=== PATIENT | female | born 1955 | race Two or more races ===

== ENCOUNTER 2020-08-20 14:52 | Inpatient (IN) | payer MEDICAID ==
[~2020-08-20] VITALS: Ht 162.6 cm; Wt 68.0 kg
--- NOTE | 2020-08-20 15:00 | NUR ---
jimmy polanco [facility].sent by pmd for abnormal labs, vent dependent patient. Patient a/ox0, opens eyes, vent dependent, needs attended.
--- NOTE | 2020-08-20 15:30 | NUR ---
IV line established, blood drawn and sent to lab.
[2020-08-20] MEDS ORDERED: ASCO-352 GT (15:34)
[2020-08-20] MEDS ORDERED: DOCU50LI GT (15:34)
[2020-08-20] MEDS ORDERED: FERR300L GT (15:34)
[2020-08-20] MEDS ORDERED: CHLO473M5 MM (15:34)
[2020-08-20] MEDS ORDERED: POLY17PO4 GT (15:34)
[2020-08-20] MEDS ORDERED: ACET-868 GT (15:34)
[2020-08-20] MEDS ORDERED: MULT-447 GT (15:34)
[2020-08-20] MEDS ORDERED: APIX2.5T GT (15:34)
[2020-08-20] MEDS ORDERED: CHOL400T GT (15:34)
[2020-08-20] MEDS ORDERED: DARB40VI SQ (15:34)
[2020-08-20] MEDS ORDERED: CRAN3875 GT (15:34)
[2020-08-20] MEDS ORDERED: SACC250C GT (15:34)
[2020-08-20] MEDS ORDERED: BISA10SU11 RC (15:34)
[2020-08-20] MEDS ORDERED: INSU100V39 SQ (15:34)
[2020-08-20] MEDS ORDERED: FURO-145 GT (15:34)
[2020-08-20] MEDS ORDERED: METO25TA20 GT (15:34)
[2020-08-20] MEDS ORDERED: PANT40SU2 GT (15:34)
[2020-08-20] MEDS ORDERED: CHLO118L6 TP (15:34)
[2020-08-20] MEDS ORDERED: MAGN400O6 GT (15:34)
[2020-08-20] MEDS ORDERED: ACET-2605 GT (15:34)
[2020-08-20] MEDS ORDERED: LEVO50TA8 GT (15:34)
[2020-08-20] MEDS ORDERED: NUT.250L18 GT (15:34)
[2020-08-20] MEDS ORDERED: ASPI-1169 GT (15:34)
[2020-08-20] MEDS ORDERED: IPRA4AER IH ×2 (15:34)
[2020-08-20] MEDS ORDERED: HYDR-4075 GT (15:34)
[2020-08-20] MEDS ORDERED: ISOS10TA2 GT (15:34)
[2020-08-20] MEDS ORDERED: NA P133E RC (15:34)
[2020-08-20] MEDS ORDERED: ATOR40TA GT (15:34)
[2020-08-20] MEDS ORDERED: INSU100V7 SQ (15:34)
[2020-08-20] MEDS ORDERED: METF-440 GT (15:34)
[2020-08-20 15:40] LABS: BASOPHILS # (AUTO) 0.1 /CMM (0.0-0.2); BASOPHILS % (AUTO) 0.3 % (0.0-2.0); EOSINOPHILS % (AUTO) 0.8 % (0.0-6.0); HEMATOCRIT 25 % (33-45); HEMOGLOBIN 7.9 g/dL (11.5-14.8); LYMPHOCYTES # (AUTO) 3.3 /CMM (0.8-4.8); LYMPHOCYTES % (AUTO) 15.2 % (20.0-44.0); MEAN CORPUSCULAR HGB CONC 32 g/dl (31.0-36.0); MEAN CORPUSCULAR VOLUME 84 fL (82-100); MONOCYTES # (AUTO) 0.8 /CMM (0.1-1.30); MONOCYTES % (AUTO) 3.5 % (2.0-12.0); NEUTROPHILS # (AUTO) 17.1 /CMM (1.8-8.9); NEUTROPHILS % (AUTO) 80.2 % (43.0-81.0); PLATELET COUNT (AUTO) 603 /CMM (150-450); RED BLOOD CELL COUNT(AUTO) 2.96 MIL/uL (4.0-5.2); WHITE BLOOD COUNT (AUTO) 21.4 K/uL (4.3-11.0)
[2020-08-20 15:52] LABS: MAGNESIUM 2.8 mg/dL (1.8-2.4)
[2020-08-20 15:59] LABS: ALANINE AMINOTRANSFERASE 37 U/L (12-78); ALBUMIN 2.2 g/dL (3.4-5.0); ALKALINE PHOSPHATASE 163 U/L (46-116); ASPARTATE AMINOTRANSFERASE 32 U/L (15-37); BILIRUBIN,DIRECT 0.1 mg/dL (0.0-0.2); BILIRUBIN,TOTAL 0.2 mg/dL (0.2-1.0); CALCIUM, SERUM 9.7 mg/dL (8.5-10.1); CARBON DIOXIDE 31 mmol/L (21-32); CHLORIDE 99 mmol/L (98-107); CREATININE 1.2 mg/dL (0.6-1.3); GLUCOSE 171 mg/dL (74-106); POTASSIUM 4.8 mmol/L (3.5-5.1); SODIUM SERUM 136 mmol/L (136-145); TOTAL PROTEIN, SERUM 8.3 g/dL (6.4-8.2); UREA NITROGEN, BLOOD 41 mg/dL (7-18)
[2020-08-20 16:06] LABS: ABG BASE EXCESS 6.1 mmol/L; ABG OXYGEN SATURATION 99.3 % (92.0-98.5); ABG PCO2 41.7 mmHg (35.0-45.0); ABG PH 7.478 (7.350-7.450); ABG PO2 184.4 mmHg (75.0-100.0); COHb 0.3 % (0.5-1.5); MetHb 0.3 % (0.0-1.5); O2Hb 98.7 % (94.0-97.0); SITE, ABG Right Radial; VENT MODE, BG AC 14 450 30% +5
[2020-08-20] MEDS ORDERED: MEROPENEM 1,000 MG in IV NS 0.9% 100 ML IV ONE (16:30)
[2020-08-20] MEDS ORDERED: NS 0.9% IV ONE (16:30)
--- NOTE | 2020-08-20 16:58 | NUR ---
CALLED [facility], PAGED DR SCHULTE
[2020-08-20 17:07] LABS: BILIRUBIN,URINE Negative (NEGATIVE); COLOR,URINE YELLOW (YELLOW); LEUKOCYTE ESTERASE ,URINE Large (NEGATIVE); NITRITE, URINE Negative (NEGATIVE); PROTEIN,URINE 100 mg/dl (NEGATIVE); UGLUCOSE Negative (NEGATIVE); UROBILINOGEN,URINE 0.2 EU/dL (0.2)
[2020-08-20 17:08] LABS: PH,URINE >8.5 (5.0-8.0)
[2020-08-20 17:10] LABS: BACTERIA,URINE 3+ /HPF (None Seen); RBC,URINE NONE SEEN /HPF (0-2); SQUAMOUS EPITHELIAL CELL,UR Few /HPF (None Seen); WBC,URINE TOO NUMEROUS TO COUN /HPF (0-3)
[2020-08-20] MEDS ORDERED: ACETAMINOPHEN 325 MG TABLET PO PRN (17:30)
[2020-08-20] MEDS ORDERED: BISACODYL SUPP (10 MG) 10 MG/SUPP.RECT SUPP.RECT RC PRN (17:30)
[2020-08-20] MEDS ORDERED: GLUCERNA 1.2 1,000 ML BOTTLE NG PRN (17:30)
[2020-08-20] MEDS ORDERED: MAGNESIUM HYDROXIDE 30 ML UDC GT PRN (17:30)
[2020-08-20] MEDS ORDERED: Z GUARD REMEDY 2 OZ OINT TP PRN (17:30)
[2020-08-20] MEDS ORDERED: ENOXAPARIN SODIUM 40 MG/0.4 ML DISP.SYRIN SQ SCH (17:30)
[2020-08-20] MEDS ORDERED: HYDROCODONE/APAP 5/325MG TABLET GT PRN (17:30)
[2020-08-20] MEDS ORDERED: NA PHOS,M-B/NA PHOS,DI-BA 1 EA ENEMA RC PRN (17:30)
[2020-08-20] MEDS ORDERED: ONDANSETRON HCL/PF 4 MG/2 ML VIAL IVP PRN (17:30)
--- NOTE | 2020-08-20 19:26 | NUR ---
ASSUMED CARE. REPORT RECEIVED FROM AM SHIFT HUDSON ALEXANDER. PT AAOX1 NO ACUTE DISTRESS NOTED. PT TOLERATING CURRENT VENT SETTING AC-14, TV-450. FIO2-40%, PEEP-5, RESP EVEN AND UNLABORED. RHONCHI HEARD BILATERALLY ON AUSCULTATION. NO PAIN OR DISCOMFORT AT THIS TIME. PT REMAINS ON CARDIAC MONITORING SHOWS NSR-90'S, CONTINUOUS POX WITH 02 SAT 100% ON RA. WILL CONTINUE TO MONITOR PT CLOSELY. CALL LIGHT WITHIN REACH.
--- NOTE | 2020-08-20 20:25 | NUR ---
RT pt received on mechanical vent with current settings. trached, portex 8. vent plugged in to red outlet. ambu bag at [facility]. alarms on and audible. small, yellow secretions suctioned via trach. no resp distress, no sob at this time. will continue to monitor.
[2020-08-20] MEDS ORDERED: PANTOPRAZOLE 40 MG/PACK PACK ONE (20:37)
[2020-08-20] MEDS ORDERED: FERROUS SULFATE UDC 300 MG/5 ML UDC ONE (20:37)
[2020-08-20] MEDS ORDERED: METOPROLOL TARTRATE 50 MG TABLET ONE (20:38)
[2020-08-20] MEDS ORDERED: MEROPENEM 1 G in IV NS 0.9% 100 ML IV SCH (21:00)
[2020-08-20] MEDS: FERROUS SULFATE UDC 300 MG/5 ML UDC GT SCH (21:00)
[2020-08-20] MEDS: PANTOPRAZOLE 40 MG/PACK PACK GT SCH (21:05)
[2020-08-20] MEDS: ISOSORBIDE DINITRATE (10MG) 10 MG TABLET GT SCH (21:06)
[2020-08-20] MEDS: METOPROLOL TARTRATE 50 MG TABLET GT SCH (21:10)
[2020-08-20] MEDS: IV NS 0.9% 1,000 ML IV PRN (21:33)
--- NOTE | 2020-08-20 23:07 | NUR ---
TOTAL PT CARE DONE, BED LINEN CHANGED, REPOSITIONED PT FOR COMFORT, SUCTIONED PT.
--- NOTE | 2020-08-21 01:00 | NUR ---
PT RESTING QUIETLY, NO ACUTE DISTRESS NOTED, RESP EVEN AND UNLABORED. NO PAIN OR DISCOMFORT NOTED AT THIS TIME. CALL LIGHT WITHIN REACH. WILL CONTINUE TO MONITOR PT CLOSELY.
[2020-08-21 04:10] LABS: BASOPHILS % (AUTO) 0.2 % (0.0-2.0); EOSINOPHILS % (AUTO) 0.6 % (0.0-6.0); HEMATOCRIT 24 % (33-45); HEMOGLOBIN 7.4 g/dL (11.5-14.8); LYMPHOCYTES # (AUTO) 1.7 /CMM (0.8-4.8); LYMPHOCYTES % (AUTO) 8.7 % (20.0-44.0); MEAN CORPUSCULAR HGB CONC 32 g/dl (31.0-36.0); MEAN CORPUSCULAR VOLUME 84 fL (82-100); MONOCYTES # (AUTO) 0.7 /CMM (0.1-1.30); MONOCYTES % (AUTO) 3.6 % (2.0-12.0); NEUTROPHILS # (AUTO) 16.9 /CMM (1.8-8.9); NEUTROPHILS % (AUTO) 86.9 % (43.0-81.0); PLATELET COUNT (AUTO) 535 /CMM (150-450); RED BLOOD CELL COUNT(AUTO) 2.82 MIL/uL (4.0-5.2); WHITE BLOOD COUNT (AUTO) 19.5 K/uL (4.3-11.0)
[2020-08-21 04:21] LABS: CALCIUM, SERUM 9.4 mg/dL (8.5-10.1); CREATININE 0.8 mg/dL (0.6-1.3); MAGNESIUM 2.5 mg/dL (1.8-2.4); PHOSPHORUS 3.6 mg/dL (2.5-4.9); POTASSIUM 4.3 mmol/L (3.5-5.1)
--- NOTE | 2020-08-21 04:32 | NUR ---
REPOSITIONED PT FOR COMFORT. CALL LIGHT WITHIN REACH. WILL CONTINUE TO MONITOR PT CLOSELY.
[2020-08-21 04:38] LABS: THYROID STIMULATING HORMONE 5.184 uIU/mL (0.358-3.74)
[2020-08-21] MEDS: ISOSORBIDE DINITRATE (10MG) 10 MG TABLET GT SCH ×3 (05:20→21:39)
[2020-08-21] MEDS: GLUCERNA 1.2 1,000 ML BOTTLE GT PRN (05:21)
[2020-08-21] MEDS: MEROPENEM 1 G in IV NS 0.9% 100 ML IV SCH ×2 (05:56→18:04)
--- NOTE | 2020-08-21 07:33 | NUR ---
REPORT GIVEN TO AM SHIFT HUDSON ALEXANDER.
[2020-08-21] MEDS ORDERED: DOCUSATE SODIUM 100 MG CAPSULE PO ONE (08:59)
[2020-08-21] MEDS ORDERED: APIXABAN 2.5 MG TABLET ONE ×2 (08:59→17:23)
[2020-08-21] MEDS ORDERED: METFORMIN 500 MG TABLET ONE ×2 (08:59→17:23)
[2020-08-21] MEDS ORDERED: METOPROLOL TARTRATE 50 MG TABLET ONE ×2 (09:00→21:21)
[2020-08-21] MEDS ORDERED: ASPIRIN 81 MG TAB.CHEW ONE (09:03)
[2020-08-21] MEDS: ASPIRIN 81 MG TAB.CHEW GT SCH (09:06)
[2020-08-21] MEDS ORDERED: DOCUSATE SODIUM LIQ 100 MG/10 ML UDC ONE ×2 (09:12→17:23)
[2020-08-21] MEDS: METFORMIN 500 MG TABLET GT SCH ×2 (09:13→17:27)
[2020-08-21] MEDS: APIXABAN 2.5 MG TABLET GT SCH ×2 (09:14→17:26)
[2020-08-21] MEDS: DOCUSATE SODIUM LIQ 100 MG/10 ML UDC GT SCH ×2 (09:14→17:26)
[2020-08-21] MEDS: METOPROLOL TARTRATE 50 MG TABLET GT SCH ×2 (09:15→21:39)
[2020-08-21] MEDS: POLYETHYLENE GLYCOL 3350 17 GM POWD.PACK GT SCH (09:19)
[2020-08-21] MEDS ORDERED: ATORVASTATIN 40 MG TABLET ONE (09:20)
[2020-08-21] MEDS ORDERED: LEVOTHYROXINE SODIUM 50 MCG TABLET ONE (09:21)
[2020-08-21] MEDS: ATORVASTATIN 40 MG TABLET GT SCH (09:21)
[2020-08-21] MEDS ORDERED: CHOLECALCIFEROL 1,000 UNIT TABLET (VIT D3) ONE (09:21)
[2020-08-21] MEDS ORDERED: ASCORBIC ACID 500 MG TABLET ONE ×2 (09:21→17:24)
[2020-08-21] MEDS ORDERED: PANTOPRAZOLE 40 MG/PACK PACK ONE ×2 (09:21→21:21)
[2020-08-21] MEDS: PANTOPRAZOLE 40 MG/PACK PACK GT SCH ×2 (09:22→21:39)
[2020-08-21] MEDS: LEVOTHYROXINE SODIUM 25 MCG TABLET GT SCH (09:22)
[2020-08-21] MEDS: ASCORBIC ACID 500 MG TABLET GT SCH ×2 (09:22→17:27)
[2020-08-21] MEDS ORDERED: FERROUS SULFATE UDC 300 MG/5 ML UDC ONE ×4 (09:23→21:38)
[2020-08-21] MEDS: FERROUS SULFATE UDC 300 MG/5 ML UDC GT SCH ×4 (09:52→21:39)
[2020-08-21] MEDS: CHOLECALCIFEROL (VITAMIN D 3) 400 UNIT TABLET GT SCH (10:00)
[2020-08-21] MEDS: INSULIN GLARGINE, 100 UNIT/ML CARTRIDGE SQ SCH ×2 (10:06→18:03)
--- NOTE | 2020-08-21 15:19 | NUR ---
Vero constantino in EDM - 08/21/20 at 1652 by SCOOBY PATIENT CAME BACK FROM US GUIDED BIOPSY. TOLERATED PROCEDURE WELL. BACK IN BED. WILL CONTINUE TO MONITOR VS.
[2020-08-21] MEDS ORDERED: CHLORHEXIDINE GLUCONATE 4% 118 ML BOTTLE TP SCH (17:30)
--- NOTE | 2020-08-21 19:36 | NUR ---
RT pt received on mechanical vent with current vent settings. trached, portex 8. vent plugged in to red outlet. trach patent and secure. no resp distress, no sob. ambu bag at [facility]. alarms on and audible. will continue to monitor.
--- NOTE | 2020-08-21 19:45 | NUR ---
REC'D PT IN BED ,PT AAOX0, VENT/TRACHE DEPENDENT, NOT IN ANY DISTRESS, NO SOB, PT ADMITTED FOR UTI/SEPSIS, WITH ONOGING GT FEEDING, NO EPSIODES OF ASPIRATION NOTED, HOB ELEVATED, PT WITH IVF FOR MAINTENANCE, PT VSS, NO ACUTE CHANGES, WCTM
[2020-08-22 04:34] LABS: BASOPHILS # (AUTO) 0.2 /CMM (0.0-0.2); BASOPHILS % (AUTO) 1.1 % (0.0-2.0); EOSINOPHILS % (AUTO) 1.2 % (0.0-6.0); HEMATOCRIT 22 % (33-45); HEMOGLOBIN 7.1 g/dL (11.5-14.8); LYMPHOCYTES # (AUTO) 2.2 /CMM (0.8-4.8); LYMPHOCYTES % (AUTO) 15.3 % (20.0-44.0); MEAN CORPUSCULAR HGB CONC 32 g/dl (31.0-36.0); MEAN CORPUSCULAR VOLUME 83 fL (82-100); MONOCYTES # (AUTO) 0.6 /CMM (0.1-1.30); MONOCYTES % (AUTO) 4.5 % (2.0-12.0); NEUTROPHILS # (AUTO) 11.2 /CMM (1.8-8.9); NEUTROPHILS % (AUTO) 77.9 % (43.0-81.0); PLATELET COUNT (AUTO) 482 /CMM (150-450); RED BLOOD CELL COUNT(AUTO) 2.65 MIL/uL (4.0-5.2); WHITE BLOOD COUNT (AUTO) 14.3 K/uL (4.3-11.0)
[2020-08-22 04:51] LABS: ALBUMIN 1.9 g/dL (3.4-5.0); BILIRUBIN,TOTAL 0.2 mg/dL (0.2-1.0); CALCIUM, SERUM 8.8 mg/dL (8.5-10.1); CREATININE 0.8 mg/dL (0.6-1.3); MAGNESIUM 2.1 mg/dL (1.8-2.4); PHOSPHORUS 1.9 mg/dL (2.5-4.9); TOTAL PROTEIN, SERUM 7.3 g/dL (6.4-8.2)
[2020-08-22] MEDS: ISOSORBIDE DINITRATE (10MG) 10 MG TABLET GT SCH ×2 (05:00→13:13)
[2020-08-22] MEDS: MEROPENEM 1 G in IV NS 0.9% 100 ML IV SCH ×2 (06:52→17:31)
[2020-08-22] MEDS: IV NS 0.9% 1,000 ML IV PRN (07:17)
--- NOTE | 2020-08-22 08:00 | NUR ---
PATIENT A/OXO, OPENS EYES, NO DISTRESS NOTED. ON MECHANICAL VENT AND TOLERATING WELL. KEPT COMFORTABLE. IV FLUID INFUSING, GT FEEDING DOSE COMPLETED WILL RESUME IN 2 HOURS. TURNED AND REPOSITIONED. OFFLOADED HEELS.
[2020-08-22] MEDS ORDERED: FERROUS SULFATE UDC 300 MG/5 ML UDC ONE ×3 (08:36→17:18)
[2020-08-22] MEDS ORDERED: DOCUSATE SODIUM LIQ 100 MG/10 ML UDC ONE ×2 (08:36→17:18)
[2020-08-22] MEDS ORDERED: METFORMIN 500 MG TABLET ONE ×2 (08:37→17:18)
[2020-08-22] MEDS ORDERED: ATORVASTATIN 40 MG TABLET ONE (08:37)
[2020-08-22] MEDS ORDERED: ASCORBIC ACID 500 MG TABLET ONE ×2 (08:37→17:18)
[2020-08-22] MEDS ORDERED: APIXABAN 2.5 MG TABLET ONE (08:37)
[2020-08-22] MEDS ORDERED: ASPIRIN 81 MG TAB.CHEW ONE (08:38)
[2020-08-22] MEDS ORDERED: PANTOPRAZOLE 40 MG/PACK PACK ONE (08:38)
[2020-08-22] MEDS ORDERED: METOPROLOL TARTRATE 50 MG TABLET ONE (08:38)
[2020-08-22] MEDS: APIXABAN 2.5 MG TABLET GT SCH (08:40)
[2020-08-22] MEDS: DOCUSATE SODIUM LIQ 100 MG/10 ML UDC GT SCH ×2 (08:40→17:22)
[2020-08-22] MEDS: FERROUS SULFATE UDC 300 MG/5 ML UDC GT SCH ×3 (08:40→17:22)
[2020-08-22] MEDS: ASPIRIN 81 MG TAB.CHEW GT SCH (08:40)
[2020-08-22] MEDS: ATORVASTATIN 40 MG TABLET GT SCH (08:41)
[2020-08-22] MEDS: METFORMIN 500 MG TABLET GT SCH ×2 (08:41→17:22)
[2020-08-22] MEDS: METOPROLOL TARTRATE 50 MG TABLET GT SCH (08:41)
[2020-08-22] MEDS: LEVOTHYROXINE SODIUM 25 MCG TABLET GT SCH (08:42)
[2020-08-22] MEDS: ASCORBIC ACID 500 MG TABLET GT SCH ×2 (08:42→17:22)
[2020-08-22] MEDS: POLYETHYLENE GLYCOL 3350 17 GM POWD.PACK GT SCH (08:42)
[2020-08-22] MEDS: CHOLECALCIFEROL (VITAMIN D 3) 400 UNIT TABLET GT SCH (08:42)
[2020-08-22] MEDS: PANTOPRAZOLE 40 MG/PACK PACK GT SCH (08:42)
[2020-08-22] MEDS: INSULIN GLARGINE, 100 UNIT/ML CARTRIDGE SQ SCH ×2 (08:44→17:31)
[2020-08-22] MEDS: GLUCERNA 1.2 1,000 ML BOTTLE GT PRN (09:00)
[2020-08-22] MEDS ORDERED: NEUTRA PHOS 1 POWD.PACKET NG ONE (10:00)
--- NOTE | 2020-08-22 14:23 | NUR ---
WOUND CARE DONE ON SINGH. HEELS AND SACRAL AREA. NO DISTRESS NOTED.
--- NOTE | 2020-08-22 14:41 | NUR ---
CALL FROM FRANK,CASE MANAGEMENT,[employer] TIME IS [id number]
--- NOTE | 2020-08-22 20:12 | NUR ---
REPORT CALLED TO [facility] / [facility] A[facility] COUNSELORHUDSON PACHECO.
--- NOTE | 2020-08-22 20:17 | NUR ---
TRANSPORT AT [facility] REPORT GIVEN TO EMT AND RT TRANSPORT. LEFT SL IN PLACE PER [facility] REQUEST DUE TO ANTIBIOTIC INFUSION PER MD ORDER.
[2020-08-22 20:27] VITALS: BP 145/69
== END 2020-08-22 20:17 | DRG 720 ==
LOC: ER 15:01 → TRANSITION 17:46
PROC: 5A1945Z Respiratory Ventilation, 24-96 Consecutive Hours (ICD-10-PCS; principal; 2020-08-20)
DX: A41.9 Sepsis, unspecified organism (principal); E03.9 Hypothyroidism, unspecified; E11.9 Type 2 diabetes mellitus without complications; E44.0 Moderate protein-calorie malnutrition; I50.9 Heart failure, unspecified; G93.1 Anoxic brain damage, not elsewhere classified; Z93.0 Tracheostomy status; Z93.1 Gastrostomy status; Z99.11 Dependence on respirator [ventilator] status; N39.0 Urinary tract infection, site not specified; J96.10 Chronic respiratory failure, unspecified whether with hypoxia or hypercapnia; E78.5 Hyperlipidemia, unspecified; I25.10 Atherosclerotic heart disease of native coronary artery without angina pectoris; K21.9 Gastro-esophageal reflux disease without esophagitis; E86.0 Dehydration; R13.10 Dysphagia, unspecified; Z20.822 Contact with and (suspected) exposure to COVID-19; M62.462 Contracture of muscle, left lower leg; M62.461 Contracture of muscle, right lower leg; Z79.4 Long term (current) use of insulin; Z79.51 Long term (current) use of inhaled steroids; Z79.899 Other long term (current) drug therapy; Z79.82 Long term (current) use of aspirin; K74.60 Unspecified cirrhosis of liver; B96.4 Proteus (mirabilis) (morganii) as the cause of diseases classified elsewhere; R79.89 Other specified abnormal findings of blood chemistry; D64.9 Anemia, unspecified
CPT/HCPCS: 31720; 36415; 36600; 71045-TC; 80048-TC; 80053-TC; 80061-TC; 80076-TC; 81001; 82140-TC; 82803-TC; 82962-TC; 83605-TC; 83735-TC; 84100-TC; 84443-TC; 84484-TC; 85025-TC; 85730-TC; 87040-TC; 87081-TC; 87086-TC; 87186-TC; 94002-TC; 94003-TC; 94799-TC; C9803; G0378; J1815; J2185; J7030; U0003